=== PATIENT | male | born 1975 | race Caucasian/White ===

== ENCOUNTER 2022-07-23 12:16 | Emergency (ER) | payer MEDICAID ==
[~2022-07-23] VITALS: Ht 160 cm; Wt 74.8 kg
[2022-07-23 12:43] VITALS: BP 138/91
--- NOTE | 2022-07-23 12:45 | NUR ---
Josh loza in EDM - 07/23/22 at 1355 by [facility] BIB SELF C/O FEVER, COUGH, RUNNY NOSE X LAST NIGHT. COVID TESTED NEGATIVE TODAY. PMH: DMITRY
--- NOTE | 2022-07-23 12:50 | NUR ---
C/O LEFT CHEST PAIN RADIATING TO LEFT ARM. DENIES TRAUMA. PMH: HTN, ANXIETY
--- NOTE | 2022-07-23 14:05 | NUR ---
PT AMBULATED TO BED 11
[2022-07-23 15:23] LABS: BASOPHILS % (AUTO) 0.3 % (0.0-2.0); EOSINOPHILS # (AUTO) 0.1 K/uL (0-0.4); HEMATOCRIT 47.6 % (36-52); HEMOGLOBIN 16.5 g/dL (12.0-18.0); LYMPHOCYTES # (AUTO) 1.6 K/uL (2.0-11.5); LYMPHOCYTES % (AUTO) 12.5 % (20.5-51.1); MEAN CORPUSCULAR HEMOGLOBIN 32 pg (27-31); MEAN CORPUSCULAR HGB CONC 35 g/dL (33-37); MEAN CORPUSCULAR VOLUME 92.3 fL (80-94); MONOCYTES # (AUTO) 0.8 K/uL (0.8-1.0); MONOCYTES % (AUTO) 6.5 % (1.7-9.3); NEUTROPHILS % (AUTO) 79.7 % (42.2-75.2); PLATELET COUNT (AUTO) 414 K/uL (140-450); RED BLOOD CELL COUNT(AUTO) 5.15 MIL/uL (4.20-6.10); RED CELL DISTRIBUTION WIDTH 13.9 % (11.6-13.7); WHITE BLOOD COUNT (AUTO) 12.5 K/uL (4.8-10.8)
[2022-07-23 16:03] LABS: ALBUMIN 3.7 g/dL (3.4-5.0); ANION GAP 11.9 (8-16); ASPARTATE AMINOTRANSFERASE 26 U/L (15-37); CARBON DIOXIDE 30.5 mmol/L (21-32); CHLORIDE 101 mmol/L (98-107); CREATININE 0.8 mg/dL (0.6-1.3); GFR ARICAN-AMERICAN 134 mL/min (>90); GLUCOSE 95 mg/dL (74-106); POTASSIUM 4.4 mmol/L (3.5-5.1); SODIUM SERUM 139 mmol/L (136-145); TOTAL BILIRUBIN 0.4 mg/dL (0.0-1.0); UREA NITROGEN, BLOOD 7 mg/dL (7-18)
[2022-07-23 18:14] VITALS: BP 131/100
--- NOTE | 2022-07-23 18:58 | NUR ---
Patient discharged with v/s stable. Written and verbal after care instructions given and explained. Patient verbalized understanding. Ambulatory with steady gait. All questions addressed prior to discharge. Advised to follow up with PMD.
== END 2022-07-23 18:58 | disposition home or self-care (01) ==
LOC: MED 12:16
DX: R07.89 Other chest pain (principal); I10 Essential (primary) hypertension; Z79.899 Other long term (current) drug therapy
CPT/HCPCS: 36415; 71045; 80053; 84484; 85025; 93005; 99285

== ENCOUNTER 2024-05-04 01:47 | Emergency (ER) | payer MEDICAID, OTHER ==
[~2024-05-04] VITALS: Ht 160 cm; Wt 77.1 kg
[2024-05-04 01:53] VITALS: BP 112/70; PULSE 72; RESP 18; TEMP 98; O2SAT 99
[2024-05-04] MEDS: HYDROcodone/APAP 5/325 MG 1 TAB TAB PO ONE (02:40)
[2024-05-04] MEDS: FLUORESCEIN OPTH STRIP 1 MG OP ONE (02:57)
[2024-05-04] MEDS: TETRACAINE HCL/PF 0.5% OPTH 4 ML BTL OP ONE (02:58)
[2024-05-04 04:21] VITALS: BP 139/97; PULSE 86; RESP 20; TEMP 97.6; O2SAT 96
== END 2024-05-04 04:21 | disposition left against medical advice (07) ==
LOC: MED 01:47
DX: S01.111A Laceration without foreign body of right eyelid and periocular area, initial encounter (principal); I10 Essential (primary) hypertension; X58.XXXA Exposure to other specified factors, initial encounter; Y93.89 Activity, other specified; Y92.89 Other specified places as the place of occurrence of the external cause; Y99.8 Other external cause status
CPT/HCPCS: 70480; 90471; 90715; 99285